=== PATIENT | male | born 1965 | race Caucasian/White ===

== ENCOUNTER 2022-08-28 01:10 | Inpatient (IN) | payer OTHER ==
[~2022-08-28] VITALS: Ht 182.9 cm; Wt 88.9 kg
[2022-08-28] MEDS ORDERED: MAG/ALUM/SIMETH 30 ML UDCUP ONE ×3 (01:18→03:13)
[2022-08-28] MEDS ORDERED: NITROGLYCERIN 50MG/D5W 250ML 1 BOT ONE (01:19)
[2022-08-28 01:34] LABS: BASOPHILS % (AUTO) 0.8 % (0.0-5.0); EOSINOPHILS % (AUTO) 0.3 % (0.0-8.0); HEMATOCRIT 42.2 % (42-54); LYMPHOCYTES % (AUTO) 7.3 % (21.0-51.0); MEAN CORPUSCULAR HEMOGLOBIN 21.8 pg (27.0-33.0); MEAN CORPUSCULAR HGB CONC 29.6 g/dL (32.0-36.0); MEAN CORPUSCULAR VOLUME 73.6 fL (79-99); MONOCYTES % (AUTO) 10.4 % (3.0-13.0); NEUTROPHILS % (AUTO) 80.6 % (40.0-77.0); PLATELET COUNT (AUTO) 383 K/uL (130-400); RED BLOOD CELL COUNT(AUTO) 5.73 MIL/uL (4.50-6.20); RED CELL DISTRIBUTION WIDTH 19.4 % (11.0-15.5); WHITE BLOOD COUNT (AUTO) 14.5 K/uL (4.8-10.8)
[2022-08-28] MEDS ORDERED: LIDOCAINE HCL 2% VISCOUS 15 ML UDCUP ONE (01:40)
[2022-08-28] MEDS ORDERED: DICYCLOMINE HCL 10 MG/5 ML ML PO ONE (01:40)
[2022-08-28 01:44] LABS: ALBUMIN 3.4 g/dL (3.5-5.0); CREATININE 1.7 mg/dL (0.5-1.5); POTASSIUM 4.3 mmol/L (3.5-5.1); TOTAL PROTEIN, SERUM 7.3 g/dL (6.0-8.3)
[2022-08-28 02:21] LABS: APPEARANCE,URINE CLOUDY (CLEAR); BILIRUBIN,URINE NEGATIVE (NEGATIVE); COLOR,URINE LIGHT-YELLOW (YELLOW); GLUCOSE, URINE (UA) NEGATIVE (NEGATIVE); KETONES,URINE NEGATIVE (NEGATIVE); LEUKOCYTE ESTERASE ,URINE NEGATIVE Leu/uL (NEGATIVE); NITRATE,URINE NEGATIVE (NEGATIVE); OCCULT BLOOD,URINE NEGATIVE (NEGATIVE); PROTEIN,URINE 50 mg/dL (NEGATIVE); UROBILINOGEN,URINE 0.2 mg/dL (0.2-1.0)
[2022-08-28 02:26] LABS: CREATINE KINASE, TOTAL 130 U/L (21-232); LIPASE 149 U/L (114-286)
[2022-08-28 02:27] LABS: AMPHET/METH SCREEN,URINE NEGATIVE (NEGATIVE); BARBITURATE SCREEN, URINE NEGATIVE (NEGATIVE); BENZODIAZEPINES SCREEN,URINE POSITIVE (NEGATIVE); CANNABINOID SCREEN,URINE NEGATIVE (NEGATIVE); COCAINE SCREEN,URINE POSITIVE (NEGATIVE); OPIATE SCREEN,URINE NEGATIVE (NEGATIVE); PHENCYCLIDINE SCREEN,URINE NEGATIVE (NEGATIVE)
[2022-08-28 02:29] LABS: RBC,URINE 0-1 /HPF (0-1); WBC,URINE 0-1 /HPF (0-1)
[2022-08-28] MEDS ORDERED: PANTOPRAZOLE 40 MG/VIAL ONE (03:13)
[2022-08-28] MEDS ORDERED: SUCRALFATE 1 GM TABLET PO STA (03:49)
[2022-08-28] MEDS ORDERED: HYDRALAZINE 20MG/ML VIAL IV STA (03:49)
[2022-08-28] MEDS ORDERED: ONDANSETRON 4MG INJ IVP PRN (05:00)
[2022-08-28] MEDS ORDERED: ACETAMINOPHEN 325 MG TAB PO PRN (05:00)
[2022-08-28] MEDS ORDERED: NITROGLYCERIN 50MG/D5W 250ML 250 BOT IV SCH (05:00)
[2022-08-28] MEDS: 0.9%NACL 1000ML 1,000 ML IV SCH ×2 (05:52→17:26)
[2022-08-28] MEDS: MORPHINE 2 MG SYG IVP PRN ×2 (05:52→10:28)
[2022-08-28 08:17] LABS: THYROID STIMULATING HORMONE 2.54 uIU/mL (0.36-3.74)
[2022-08-28] MEDS: AMLODIPINE 5 MG TAB PO SCH (09:03)
[2022-08-28] MEDS: PANTOPRAZOLE 40 MG/VIAL IVP SCH (09:03)
[2022-08-28] MEDS: ENOXAPARIN SODIUM 40 MG/0.4 ML SYRINGE SQ SCH (09:03)
[2022-08-28 14:22] VITALS: BP 142/97
[2022-08-28] MEDS: ZOSYN 3.375GM +NS 50ML IVPB SCH (16:22)
[2022-08-28 19:13] VITALS: BP 134/77
[2022-08-28] MEDS ORDERED: FAMOTIDINE 20MG VIAL IV SCH (21:00)
[2022-08-28 23:47] VITALS: BP 129/86
[2022-08-29 03:42] VITALS: BP 124/91
[2022-08-29] MEDS: ZOSYN 3.375GM +NS 50ML IVPB SCH ×3 (03:50→20:58)
[2022-08-29 04:10] LABS: BASOPHILS % (AUTO) 0.4 % (0.0-5.0); EOSINOPHILS % (AUTO) 0.3 % (0.0-8.0); HEMATOCRIT 38.3 % (42-54); LYMPHOCYTES % (AUTO) 7.4 % (21.0-51.0); MEAN CORPUSCULAR HEMOGLOBIN 22.6 pg (27.0-33.0); MEAN CORPUSCULAR VOLUME 75.2 fL (79-99); MONOCYTES % (AUTO) 8.1 % (3.0-13.0); NEUTROPHILS % (AUTO) 83.1 % (40.0-77.0); PLATELET COUNT (AUTO) 283 K/uL (130-400); RED BLOOD CELL COUNT(AUTO) 5.09 MIL/uL (4.50-6.20); RED CELL DISTRIBUTION WIDTH 18.4 % (11.0-15.5); WHITE BLOOD COUNT (AUTO) 18.9 K/uL (4.8-10.8)
[2022-08-29 04:27] LABS: ALBUMIN 2.7 g/dL (3.5-5.0); CREATININE 2.3 mg/dL (0.5-1.5); MAGNESIUM 1.8 mg/dL (1.80-2.40); TOTAL PROTEIN, SERUM 6.5 g/dL (6.0-8.3)
[2022-08-29 07:04] VITALS: BP 141/92
[2022-08-29] MEDS ORDERED: PHARMACY COMMUNICATION MISC SCH (08:00)
[2022-08-29] MEDS: ENOXAPARIN SODIUM 40 MG/0.4 ML SYRINGE SQ SCH (08:10)
[2022-08-29] MEDS: PANTOPRAZOLE 40 MG/VIAL IVP SCH (08:10)
[2022-08-29] MEDS: AMLODIPINE 5 MG TAB PO SCH (08:11)
[2022-08-29] MEDS: FAMOTIDINE 20MG VIAL IV SCH (08:11)
[2022-08-29] MEDS: 0.9%NACL 1000ML 1,000 ML IV SCH ×2 (08:28→19:52)
[2022-08-29] MEDS: SUCRALFATE 1 GM TABLET PO SCH ×3 (11:25→22:31)
[2022-08-29 11:45] VITALS: BP 143/100
[2022-08-29 15:31] VITALS: BP 120/79
[2022-08-29 20:00] VITALS: BP 136/96
[2022-08-30] VITALS: BP 140/90
[2022-08-30 04:00] VITALS: BP 145/96
[2022-08-30 04:55] LABS: BASOPHILS % (AUTO) 0.9 % (0.0-5.0); EOSINOPHILS % (AUTO) 1.9 % (0.0-8.0); HEMATOCRIT 36.6 % (42-54); LYMPHOCYTES % (AUTO) 11.5 % (21.0-51.0); MEAN CORPUSCULAR HEMOGLOBIN 22.5 pg (27.0-33.0); MEAN CORPUSCULAR HGB CONC 29.5 g/dL (32.0-36.0); MEAN CORPUSCULAR VOLUME 76.4 fL (79-99); MONOCYTES % (AUTO) 12.3 % (3.0-13.0); NEUTROPHILS % (AUTO) 72.7 % (40.0-77.0); PLATELET COUNT (AUTO) 266 K/uL (130-400); RED BLOOD CELL COUNT(AUTO) 4.79 MIL/uL (4.50-6.20); RED CELL DISTRIBUTION WIDTH 18.2 % (11.0-15.5); WHITE BLOOD COUNT (AUTO) 9.8 K/uL (4.8-10.8)
[2022-08-30] MEDS: ZOSYN 3.375GM +NS 50ML IVPB SCH ×3 (05:01→20:47)
[2022-08-30] MEDS: SUCRALFATE 1 GM TABLET PO SCH ×4 (05:01→20:47)
[2022-08-30 05:18] LABS: ALBUMIN 2.6 g/dL (3.5-5.0); CREATININE 2.3 mg/dL (0.5-1.5); CRP QUANTITATIVE 53.5 mg/L (0.00-9.0); MAGNESIUM 1.7 mg/dL (1.80-2.40); POTASSIUM 3.7 mmol/L (3.5-5.1); TOTAL PROTEIN, SERUM 6.4 g/dL (6.0-8.3)
[2022-08-30 08:00] VITALS: BP 143/97
[2022-08-30] MEDS: PANTOPRAZOLE 40 MG/VIAL IVP SCH (08:17)
[2022-08-30] MEDS: AMLODIPINE 5 MG TAB PO SCH (08:18)
[2022-08-30] MEDS: FAMOTIDINE 20MG VIAL IV SCH (08:18)
[2022-08-30] MEDS: ENOXAPARIN SODIUM 40 MG/0.4 ML SYRINGE SQ SCH (08:19)
[2022-08-30] MEDS: 0.9%NACL 1000ML 1,000 ML IV SCH ×2 (10:20→23:40)
[2022-08-30 11:55] VITALS: BP 146/99
[2022-08-30 16:00] VITALS: BP 147/92
[2022-08-30] MEDS: HYDRALAZINE 20MG/ML VIAL IV PRN (19:52)
[2022-08-30 20:00] VITALS: BP 154/107
[2022-08-31] VITALS: BP 154/92
[2022-08-31 04:00] VITALS: BP 142/95
[2022-08-31] MEDS: ZOSYN 3.375GM +NS 50ML IVPB SCH ×3 (05:11→20:50)
[2022-08-31] MEDS: SUCRALFATE 1 GM TABLET PO SCH ×4 (05:11→20:50)
[2022-08-31 08:00] VITALS: BP 152/92
[2022-08-31 08:33] LABS: HEMATOCRIT 37.1 % (42-54); MEAN CORPUSCULAR HEMOGLOBIN 22.7 pg (27.0-33.0); MEAN CORPUSCULAR HGB CONC 30.2 g/dL (32.0-36.0); MEAN CORPUSCULAR VOLUME 75.1 fL (79-99); RED BLOOD CELL COUNT(AUTO) 4.94 MIL/uL (4.50-6.20); RED CELL DISTRIBUTION WIDTH 18.3 % (11.0-15.5); WHITE BLOOD COUNT (AUTO) 9.3 K/uL (4.8-10.8)
[2022-08-31 08:46] LABS: CREATININE 1.9 mg/dL (0.5-1.5); MAGNESIUM 1.4 mg/dL (1.80-2.40); POTASSIUM 3.7 mmol/L (3.5-5.1)
[2022-08-31] MEDS: PANTOPRAZOLE 40 MG/VIAL IVP SCH (09:08)
[2022-08-31] MEDS: AMLODIPINE 5 MG TAB PO SCH ×2 (09:08→20:50)
[2022-08-31] MEDS: FAMOTIDINE 20MG VIAL IV SCH (09:08)
[2022-08-31] MEDS: ENOXAPARIN SODIUM 40 MG/0.4 ML SYRINGE SQ SCH (09:09)
[2022-08-31 11:48] VITALS: BP 148/86
[2022-08-31] MEDS: MAGNESIUM 2GM PREMIX 50ML 50 ML IV PRN ×2 (12:33→15:50)
[2022-08-31 13:51] LABS: APPEARANCE,URINE CLEAR (CLEAR); BILIRUBIN,URINE NEGATIVE (NEGATIVE); COLOR,URINE LIGHT-YELLOW (YELLOW); GLUCOSE, URINE (UA) NEGATIVE (NEGATIVE); KETONES,URINE NEGATIVE (NEGATIVE); LEUKOCYTE ESTERASE ,URINE NEGATIVE Leu/uL (NEGATIVE); NITRATE,URINE NEGATIVE (NEGATIVE); OCCULT BLOOD,URINE NEGATIVE (NEGATIVE); PH,URINE 6.5 (5.0-8.0); PROTEIN,URINE 30 mg/dL (NEGATIVE); UROBILINOGEN,URINE 0.2 mg/dL (0.2-1.0)
[2022-08-31 14:14] LABS: MUCUS,URINE RARE LPF (None Seen); WBC,URINE 0-1 /HPF (0-1)
[2022-08-31 16:00] VITALS: BP 141/95
[2022-08-31] MEDS: 0.9%NACL 1000ML 1,000 ML IV SCH (16:49)
[2022-08-31 20:00] VITALS: BP 156/97
[2022-09-01] VITALS: BP 139/97
[2022-09-01] MEDS: 0.9%NACL 1000ML 1,000 ML IV SCH (02:20)
[2022-09-01 04:00] VITALS: BP 158/96
[2022-09-01] MEDS: ZOSYN 3.375GM +NS 50ML IVPB SCH ×4 (04:35→20:04)
[2022-09-01] MEDS: SUCRALFATE 1 GM TABLET PO SCH ×3 (04:35→16:39)
[2022-09-01 06:17] LABS: HEMATOCRIT 40.4 % (42-54); MEAN CORPUSCULAR HEMOGLOBIN 22.3 pg (27.0-33.0); RED BLOOD CELL COUNT(AUTO) 5.25 MIL/uL (4.50-6.20); RED CELL DISTRIBUTION WIDTH 18.6 % (11.0-15.5); WHITE BLOOD COUNT (AUTO) 10.1 K/uL (4.8-10.8)
[2022-09-01 06:36] LABS: ALBUMIN 3.1 g/dL (3.5-5.0); CREATININE 1.8 mg/dL (0.5-1.5); MAGNESIUM 1.9 mg/dL (1.80-2.40); PHOSPHORUS 2.6 mg/dL (2.5-4.9); TOTAL PROTEIN, SERUM 7.5 g/dL (6.0-8.3)
[2022-09-01 08:00] VITALS: BP 154/94
[2022-09-01] MEDS: AMLODIPINE 5 MG TAB PO SCH ×2 (09:14→20:36)
[2022-09-01] MEDS: PANTOPRAZOLE 40 MG/VIAL IVP SCH (09:14)
[2022-09-01] MEDS: FAMOTIDINE 20MG VIAL IV SCH (09:14)
[2022-09-01] MEDS: ENOXAPARIN SODIUM 40 MG/0.4 ML SYRINGE SQ SCH (09:15)
[2022-09-01] MEDS: MAGNESIUM 2GM PREMIX 50ML 50 ML IV PRN (09:16)
[2022-09-01 12:00] VITALS: BP 145/98
[2022-09-01 16:04] VITALS: BP 160/104
[2022-09-01] MEDS: HYDRALAZINE 20MG/ML VIAL IV PRN (16:05)
[2022-09-01] MEDS ORDERED: HYDRALAZINE HCL 10 MG TABLET PO SCH (18:45)
[2022-09-01 20:00] VITALS: BP 159/100
[2022-09-01] MEDS ORDERED: NITROGLYCERIN 1GM OINT 1 INCH/1GM TD ONE (22:10)
[2022-09-02 00:29] VITALS: BP 137/93
[2022-09-02] MEDS: SUCRALFATE 1 GM TABLET PO SCH ×3 (00:32→11:07)
[2022-09-02 04:00] VITALS: BP 128/79
[2022-09-02] MEDS: ZOSYN 3.375GM +NS 50ML IVPB SCH ×2 (04:00→12:00)
[2022-09-02 06:18] LABS: HEMATOCRIT 38.4 % (42-54); MEAN CORPUSCULAR HEMOGLOBIN 22.7 pg (27.0-33.0); MEAN CORPUSCULAR HGB CONC 29.7 g/dL (32.0-36.0); MEAN CORPUSCULAR VOLUME 76.3 fL (79-99); PLATELET COUNT (AUTO) 286 K/uL (130-400); RED BLOOD CELL COUNT(AUTO) 5.03 MIL/uL (4.50-6.20); RED CELL DISTRIBUTION WIDTH 18.6 % (11.0-15.5); WHITE BLOOD COUNT (AUTO) 13.4 K/uL (4.8-10.8)
[2022-09-02 06:29] LABS: CREATININE 1.6 mg/dL (0.5-1.5); POTASSIUM 4.3 mmol/L (3.5-5.1)
[2022-09-02 08:09] LABS: BAND NEUTROPHILS % (MANUAL) 1 % (0-2); EOSINOPHILS % (MANUAL) 1 % (1-6); LYMPHOCYTES % (MANUAL) 15 % (22-44); MAN.DIFF COMMENT-IMPRESSION MANUAL DIFFERENTIAL; MONOCYTES % (MANUAL) 9 % (2-9); SEGMENTED NEUTROPHILS % 74 % (40-70)
[2022-09-02 08:11] LABS: PLATELET MORPHOLOGY COMMENT ADEQUATE
[2022-09-02 08:17] VITALS: BP 145/99
[2022-09-02] MEDS ORDERED: AMLO5TAB4 PO (08:19)
[2022-09-02] MEDS ORDERED: PANT40I PO (08:19)
[2022-09-02] MEDS ORDERED: SUCR1TAB PO (08:19)
[2022-09-02] MEDS: FAMOTIDINE 20MG VIAL IV SCH (09:00)
[2022-09-02] MEDS: ENOXAPARIN SODIUM 40 MG/0.4 ML SYRINGE SQ SCH (09:00)
[2022-09-02] MEDS: AMLODIPINE 5 MG TAB PO SCH (09:00)
[2022-09-02] MEDS: PANTOPRAZOLE 40 MG/VIAL IVP SCH (09:00)
[2022-09-02 11:26] VITALS: BP 133/91
== END 2022-09-02 17:56 | disposition home or self-care (01) | DRG 391 ==
LOC: EDH 01:10 → EDHIP 01:11 → 2DH 14:07 → 3BH 08-29 16:00
PROVIDERS: ADMIT Hospitalist; ATTEND Hospitalist
DX: K57.32 Diverticulitis of large intestine without perforation or abscess without bleeding (principal); N17.0 Acute kidney failure with tubular necrosis; I16.1 Hypertensive emergency; E87.1 Hypo-osmolality and hyponatremia; F14.20 Cocaine dependence, uncomplicated; E86.0 Dehydration; E83.52 Hypercalcemia; D72.829 Elevated white blood cell count, unspecified; E66.09 Other obesity due to excess calories; I10 Essential (primary) hypertension; K21.9 Gastro-esophageal reflux disease without esophagitis; Z68.26 Body mass index [BMI] 26.0-26.9, adult
CPT/HCPCS: 36415; 71045; 74176; 76770; 80048; 80053; 80061; 80305; 81001; 82306; 82550; 83690; 83735; 83970; 84100; 84443; 84484; 85025; 85027; 86140; 86334; 86677; 87040; 93005; 93306; C9113; G0378; J0360; J1650; J2405; J2543; J3475; J3490; J7030

== ENCOUNTER 2022-09-29 12:19 | Emergency (ER) | payer OTHER ==
[~2022-09-29] VITALS: Ht 177.8 cm; Wt 95.3 kg
[~2022-09-29 12:19] MED LIST: AMLO5TAB4 PO; PANT40I PO; SUCR1TAB PO
[2022-09-29 13:13] LABS: BASOPHILS % (AUTO) 0.6 % (0.0-5.0); EOSINOPHILS % (AUTO) 0.1 % (0.0-8.0); HEMATOCRIT 44.4 % (42-54); MEAN CORPUSCULAR HEMOGLOBIN 22.5 pg (27.0-33.0); MEAN CORPUSCULAR HGB CONC 29.7 g/dL (32.0-36.0); MEAN CORPUSCULAR VOLUME 75.6 fL (79-99); MONOCYTES % (AUTO) 9.8 % (3.0-13.0); PLATELET COUNT (AUTO) 265 K/uL (130-400); RED BLOOD CELL COUNT(AUTO) 5.87 MIL/uL (4.50-6.20); RED CELL DISTRIBUTION WIDTH 19.4 % (11.0-15.5); WHITE BLOOD COUNT (AUTO) 15.3 K/uL (4.8-10.8)
[2022-09-29 13:20] LABS: CREATININE 1.5 mg/dL (0.5-1.5); POTASSIUM 4.2 mmol/L (3.5-5.1)
[2022-09-29 13:24] LABS: ALBUMIN 2.6 g/dL (3.5-5.0); TOTAL PROTEIN, SERUM 8.9 g/dL (6.0-8.3)
[2022-09-29] MEDS ORDERED: MAG/ALUM/SIMETH 30 ML UDCUP PO PRN (14:00)
[2022-09-29] MEDS ORDERED: LIDOCAINE HCL 2% VISCOUS 15 ML UDCUP PO ONE (14:00)
[2022-09-29 14:20] LABS: APPEARANCE,URINE CLEAR (CLEAR); BILIRUBIN,URINE NEGATIVE (NEGATIVE); COLOR,URINE LIGHT-YELLOW (YELLOW); GLUCOSE, URINE (UA) NEGATIVE (NEGATIVE); KETONES,URINE 5 mg/dL (NEGATIVE); LEUKOCYTE ESTERASE ,URINE NEGATIVE Leu/uL (NEGATIVE); NITRATE,URINE NEGATIVE (NEGATIVE); PROTEIN,URINE 200 mg/dL (NEGATIVE); UROBILINOGEN,URINE 0.2 mg/dL (0.2-1.0)
[2022-09-29 14:21] LABS: MUCUS,URINE RARE LPF (None Seen); SQUAMOUS EPITHELIAL CELL,UR RARE /HPF (0-2)
[2022-09-29 14:31] LABS: AMPHET/METH SCREEN,URINE NEGATIVE (NEGATIVE); BARBITURATE SCREEN, URINE NEGATIVE (NEGATIVE); BENZODIAZEPINES SCREEN,URINE NEGATIVE (NEGATIVE); CANNABINOID SCREEN,URINE NEGATIVE (NEGATIVE); COCAINE SCREEN,URINE NEGATIVE (NEGATIVE); OPIATE SCREEN,URINE NEGATIVE (NEGATIVE); PHENCYCLIDINE SCREEN,URINE NEGATIVE (NEGATIVE)
[2022-09-29] MEDS ORDERED: MORPHINE 4 MG SYG IVP ONE (15:30)
[2022-09-29] MEDS ORDERED: ONDANSETRON 4MG INJ IVP ONE (15:30)
[2022-09-29] MEDS ORDERED: HYDRALAZINE 20MG/ML VIAL IV ONE (17:00)
[2022-09-29] MEDS ORDERED: AMLO5TAB4 PO (17:50)
[2022-09-29] MEDS ORDERED: FAMO-136 PO (17:50)
[2022-09-29] MEDS ORDERED: FAMOTIDINE 20MG VIAL IV ONE (18:00)
[2022-09-29] MEDS ORDERED: FAMOTIDINE 20MG TAB PO ONE (18:00)
[2022-09-29 18:11] VITALS: BP 147/99
== END 2022-09-29 18:09 | disposition home or self-care (01) ==
LOC: EDH 12:19
DX: R10.31 Right lower quadrant pain (principal); K57.30 Diverticulosis of large intestine without perforation or abscess without bleeding; I10 Essential (primary) hypertension; Z79.899 Other long term (current) drug therapy; Z98.890 Other specified postprocedural states
CPT/HCPCS: 99285; 74176; 96374; 96375; 84484; 80053; 80305; 83690; 85025; 36415; 93005; 81001; J3490; J0360; J2405; J2270

== ENCOUNTER 2023-03-11 09:23 | Emergency (ER) | payer OTHER ==
[~2023-03-11] VITALS: Ht 177.8 cm; Wt 77.1 kg
[~2023-03-11 09:23] MED LIST changes: +FAMO-136 PO
[2023-03-11 10:52] VITALS: BP 148/98; PULSE 66; RESP 16; O2SAT 100
[2023-03-11] MEDS ORDERED: PENICILLIN G BENZATHINE LA 1.2 MILUNITS/2 ML SYG IM ONE (11:00)
[2023-03-11 11:04] LABS: BASOPHILS # (AUTO) 0.03 K/uL (0.00-0.20); BASOPHILS % (AUTO) 0.8 % (0.0-5.0); EOSINOPHILS # (AUTO) 0.01 K/uL (0.00-0.70); EOSINOPHILS % (AUTO) 0.3 % (0.0-8.0); HEMATOCRIT 31.6 % (42-54); LYMPHOCYTES # (AUTO) 1.3 K/uL (1.0-4.8); LYMPHOCYTES % (AUTO) 32.8 % (21.0-51.0); MEAN CORPUSCULAR HGB CONC 30.7 g/dL (32.0-36.0); MONOCYTES # (AUTO) 0.5 K/uL (0.1-1.0); MONOCYTES % (AUTO) 12.1 % (3.0-13.0); NEUTROPHILS # (AUTO) 2.1 K/uL (1.8-7.7); PLATELET COUNT (AUTO) 284 K/uL (130-400); RED BLOOD CELL COUNT(AUTO) 4.05 MIL/uL (4.50-6.20); RED CELL DISTRIBUTION WIDTH 16.3 % (11.0-15.5); WHITE BLOOD COUNT (AUTO) 3.9 K/uL (4.8-10.8)
[2023-03-11 11:14] LABS: CREATININE 1.2 mg/dL (0.5-1.5); POTASSIUM 3.1 mmol/L (3.5-5.1)
[2023-03-11] MEDS ORDERED: CEFTRIAXONE 2GM VIAL IVPB ONE (13:00)
== END 2023-03-11 13:13 | disposition home or self-care (01) ==
LOC: EDH 09:23
DX: L03.311 Cellulitis of abdominal wall (principal); E87.6 Hypokalemia; I10 Essential (primary) hypertension; Z79.899 Other long term (current) drug therapy; Z98.890 Other specified postprocedural states
CPT/HCPCS: 99283; 96374; 80048; 85025; 87070; 87076; 36415; J0696

== ENCOUNTER 2023-03-26 10:09 | Inpatient (IN) | payer OTHER ==
[~2023-03-26] VITALS: Ht 177.8 cm; Wt 75.8 kg
[2023-03-26 10:57] LABS: BASOPHILS # (AUTO) 0.09 K/uL (0.00-0.20); BASOPHILS % (AUTO) 0.6 % (0.0-5.0); HEMATOCRIT 26.4 % (42-54); IMMATURE GRANULOCYTE ABSOLUTE 1.13 K/uL (0-1); LYMPHOCYTES # (AUTO) 1.7 K/uL (1.0-4.8); LYMPHOCYTES % (AUTO) 11.5 % (21.0-51.0); MEAN CORPUSCULAR HEMOGLOBIN 22.9 pg (27.0-33.0); MEAN CORPUSCULAR HGB CONC 30.7 g/dL (32.0-36.0); MEAN CORPUSCULAR VOLUME 74.8 fL (79-99); MONOCYTES # (AUTO) 1.4 K/uL (0.1-1.0); MONOCYTES % (AUTO) 9.4 % (3.0-13.0); NEUTROPHILS # (AUTO) 10.7 K/uL (1.8-7.7); NUCLEATED RED BLOOD CELLS 0.5 % (0.0-0.19); PLATELET COUNT (AUTO) 528 K/uL (130-400); RED BLOOD CELL COUNT(AUTO) 3.53 MIL/uL (4.50-6.20); RED CELL DISTRIBUTION WIDTH 16.8 % (11.0-15.5); WHITE BLOOD COUNT (AUTO) 15.1 K/uL (4.8-10.8)
[2023-03-26] MEDS ORDERED: KETOROLAC 15MG/ML VIAL (15MG/ML) IV ONE (11:00)
[2023-03-26] MEDS ORDERED: ONDANSETRON 4MG INJ IVP ONE (11:00)
[2023-03-26] MEDS ORDERED: 0.9%NACL 1000ML 1,000 ML IV ONE (11:00)
[2023-03-26 11:29] LABS: CREATININE 1.6 mg/dL (0.5-1.5); POTASSIUM 3.6 mmol/L (3.5-5.1)
[2023-03-26] MEDS ORDERED: AMPICILLIN 1GM+NS 50ML IV ONE (11:30)
[2023-03-26 11:34] LABS: ALBUMIN 2.5 g/dL (3.5-5.0); BILIRUBIN,TOTAL 0.2 mg/dL (0.2-1.0); TOTAL PROTEIN, SERUM 6.5 g/dL (6.0-8.3)
[2023-03-26] MEDS ORDERED: METRONIDAZOLE 500MG/100ML BAG 100 ML ONE (11:45)
[2023-03-26] MEDS ORDERED: AMPICILLIN IV ONE (13:00)
[2023-03-26] MEDS ORDERED: [UNRECOGNIZED DRUG - OTHER] IV ONE (13:00)
[2023-03-26] MEDS ORDERED: METRONIDAZOLE 500MG/100ML BAG 100 ML IVPB SCH ×2 (14:00→23:00)
[2023-03-26] MEDS ORDERED: PANTOPRAZOLE 40 MG/VIAL IVP ONE (15:30)
[2023-03-26] MEDS ORDERED: VANCOMYCIN 2GM/500 ML BAG 500 ML IV ONE (16:00)
[2023-03-26] MEDS ORDERED: METRONIDAZOLE 500MG/100ML BAG 100 ML IVPB ONE (16:00)
[2023-03-26] MEDS ORDERED: VANCOMYCIN PROTOCOL PER PHARMACY IV SCH (16:00)
[2023-03-26] MEDS ORDERED: 0.9%NACL 1000ML 1,413 ML IV ONE (16:00)
[2023-03-26] MEDS ORDERED: THIAMINE HCL 100 MG/ML 2ML VIAL IVP ONE (16:00)
[2023-03-26] MEDS ORDERED: ACETAMINOPHEN 500 MG TABLET PO PRN (16:00)
[2023-03-26] MEDS ORDERED: FOLIC ACID 5 MG/ML VIAL IV ONE ×2 (16:00→19:00)
[2023-03-26 16:30] LABS: HEMATOCRIT 25.9 % (42-54)
[2023-03-26 17:05] LABS: INR 1.63 (0.85-1.15); PROTHROMBIN TIME 18.3 SEC (9.6-11.6)
[2023-03-26 17:06] LABS: PARTIAL THROMBOPLASTIN TIME 24.7 SEC (26.3-35.5)
[2023-03-26 17:18] LABS: % IRON SATURATION 9.9 % (30-44)
[2023-03-26] MEDS: PANTOPRAZOLE 80 MG in 0.9%NACL 100ML IV SCH (17:29)
[2023-03-26] MEDS: CEFEPIME HCL 2 GM VIAL IVPB SCH (17:29)
[2023-03-26] MEDS: HYDROMORPHONE 0.5 MG SYG (0.5MG/0.5ML) IVP PRN (18:15)
[2023-03-26] MEDS: M.V.I. IV [ADULT] 10 ML, FOLIC ACID 1 MG, THIAMINE HCL 100 MG in 0.9%NACL 1000ML 1,000 ML IV SCH (18:18)
[2023-03-26 19:57] LABS: APPEARANCE,URINE CLEAR (CLEAR); BILIRUBIN,URINE NEGATIVE (NEGATIVE); COLOR,URINE LIGHT-YELLOW (YELLOW); GLUCOSE, URINE (UA) NEGATIVE (NEGATIVE); KETONES,URINE NEGATIVE (NEGATIVE); LEUKOCYTE ESTERASE ,URINE NEGATIVE Leu/uL (NEGATIVE); NITRATE,URINE NEGATIVE (NEGATIVE); OCCULT BLOOD,URINE NEGATIVE (NEGATIVE); PH,URINE 7.5 (5.0-8.0); PROTEIN,URINE NEGATIVE (NEGATIVE); UROBILINOGEN,URINE 0.2 mg/dL (0.2-1.0)
[2023-03-26 20:00] LABS: ADD UA MICROSCOPIC YES
[2023-03-26 20:03] LABS: AMPHET/METH SCREEN,URINE NEGATIVE (NEGATIVE); BARBITURATE SCREEN, URINE NEGATIVE (NEGATIVE); BENZODIAZEPINES SCREEN,URINE POSITIVE (NEGATIVE); CANNABINOID SCREEN,URINE NEGATIVE (NEGATIVE); COCAINE SCREEN,URINE POSITIVE (NEGATIVE); OPIATE SCREEN,URINE NEGATIVE (NEGATIVE); PHENCYCLIDINE SCREEN,URINE NEGATIVE (NEGATIVE)
[2023-03-26 20:07] LABS: WBC,URINE 0-1 /HPF (0-1)
[2023-03-26 22:37] LABS: HEMATOCRIT 25.3 % (42-54)
[2023-03-27] VITALS (28 sets, daily range): BP systolic 110–141; BP diastolic 62–89; PULSE 63–95; RESP 11–18; O2SAT 96–97
[2023-03-27] MEDS ORDERED: DiphenhydrAMINE HCL 50 MG/ML VIAL IV ONE (00:15)
[2023-03-27] MEDS ORDERED: PANTOPRAZOLE 40 MG/VIAL ONE (03:17)
[2023-03-27] MEDS: PANTOPRAZOLE 80 MG in 0.9%NACL 100ML IV SCH ×2 (03:25→16:26)
[2023-03-27] MEDS: HYDROMORPHONE 0.5 MG SYG (0.5MG/0.5ML) IVP PRN ×4 (03:59→22:27)
[2023-03-27 04:26] LABS: ALBUMIN 1.8 g/dL (3.5-5.0); BILIRUBIN,TOTAL 0.3 mg/dL (0.2-1.0); CREATININE 1.4 mg/dL (0.5-1.5); MAGNESIUM 1.6 mg/dL (1.80-2.40); POTASSIUM 3.7 mmol/L (3.5-5.1); TOTAL PROTEIN, SERUM 4.8 g/dL (6.0-8.3)
[2023-03-27 04:49] LABS: HEMATOCRIT 20.1 % (42-54)
[2023-03-27] MEDS: MAGNESIUM 2GM PREMIX 50ML 50 ML IV PRN (05:00)
[2023-03-27] MEDS ORDERED: KCL 20 MEQ ERTAB PO ONE (08:30)
[2023-03-27] MEDS ORDERED: MAGNESIUM 2GM PREMIX 50ML 50 ML IV SCH (08:30)
[2023-03-27 09:43] LABS: HEMATOCRIT 26.5 % (42-54); MEAN CORPUSCULAR HEMOGLOBIN 24.1 pg (27.0-33.0); MEAN CORPUSCULAR HGB CONC 30.6 g/dL (32.0-36.0); MEAN CORPUSCULAR VOLUME 78.9 fL (79-99); NUCLEATED RED BLOOD CELLS 0.4 % (0.0-0.19); RED BLOOD CELL COUNT(AUTO) 3.36 MIL/uL (4.50-6.20); RED CELL DISTRIBUTION WIDTH 18.2 % (11.0-15.5); WHITE BLOOD COUNT (AUTO) 11.1 K/uL (4.8-10.8)
[2023-03-27] MEDS: METRONIDAZOLE 500MG/100ML BAG 100 ML IVPB SCH ×3 (10:17→22:27)
[2023-03-27] MEDS ORDERED: COMPOUND IV REFRIGERATED 1 EACH IVSOLN MISC PRN (11:30)
[2023-03-27] MEDS ORDERED: PROPOFOL 10 MG/ML 20ML VIAL IV ONE ×3 (13:07→13:08)
[2023-03-27] MEDS ORDERED: METOCLOPRAMIDE 10 MG/2 ML VIAL ONE (14:04)
[2023-03-27 15:29] LABS: PROTHROMBIN TIME 11.6 SEC (9.6-11.6)
[2023-03-27 15:31] LABS: PARTIAL THROMBOPLASTIN TIME 25.1 SEC (26.3-35.5)
[2023-03-27] MEDS: CEFEPIME HCL 2 GM VIAL IVPB SCH (15:31)
[2023-03-27] MEDS: VANCOMYCIN 1.5 GM/250 ML BAG 250 ML IV SCH (16:26)
[2023-03-27] MEDS: M.V.I. IV [ADULT] 10 ML, FOLIC ACID 1 MG, THIAMINE HCL 100 MG in 0.9%NACL 1000ML 1,000 ML IV SCH ×2 (18:00→23:47)
[2023-03-28] VITALS (22 sets, daily range): BP systolic 110–159; BP diastolic 78–99; PULSE 62–92; RESP 13–18; O2SAT 97–98
[2023-03-28] MEDS: PANTOPRAZOLE 80 MG in 0.9%NACL 100ML IV SCH (03:44)
[2023-03-28] MEDS: HYDROMORPHONE 0.5 MG SYG (0.5MG/0.5ML) IVP PRN ×4 (04:22→22:41)
[2023-03-28 05:56] LABS: HEMATOCRIT 22.7 % (42-54); MEAN CORPUSCULAR HEMOGLOBIN 24.2 pg (27.0-33.0); MEAN CORPUSCULAR VOLUME 80.8 fL (79-99); NUCLEATED RED BLOOD CELLS 0.3 % (0.0-0.19); RED BLOOD CELL COUNT(AUTO) 2.81 MIL/uL (4.50-6.20); RED CELL DISTRIBUTION WIDTH 17.6 % (11.0-15.5); WHITE BLOOD COUNT (AUTO) 8.6 K/uL (4.8-10.8)
[2023-03-28 06:28] LABS: ALANINE AMINOTRANSFERASE < 6 U/L (12-78); ALBUMIN 1.9 g/dL (3.5-5.0); ASPARTATE AMINOTRANSFERASE 11 U/L (10-37); BILIRUBIN,TOTAL 0.3 mg/dL (0.2-1.0); CARBON DIOXIDE 24 mmol/L (21-32); CHLORIDE 110 mmol/L (101-111); CREATININE 1.2 mg/dL (0.5-1.5); GLOMERULAR FILTR. RATE CALC 71 mL/min (>90); GLUCOSE,RANDOM 86 mg/dL (70-105); SODIUM SERUM 140 mmol/L (136-145); TOTAL PROTEIN, SERUM 5.2 g/dL (6.0-8.3); UREA NITROGEN, BLOOD 22 mg/dL (7-18)
[2023-03-28] MEDS ORDERED: LIDOCAINE HCL 400MG/20ML VIAL ONE (06:52)
[2023-03-28] MEDS ORDERED: PROPOFOL 10 MG/ML 20ML VIAL IV ONE (06:52)
[2023-03-28] MEDS: METRONIDAZOLE 500MG/100ML BAG 100 ML IVPB SCH ×3 (07:35→22:31)
[2023-03-28] MEDS ORDERED: MAGNESIUM 2GM PREMIX 50ML 50 ML IV SCH (08:00)
[2023-03-28] MEDS: PANTOPRAZOLE 40 MG TAB DR PO SCH ×2 (09:32→20:42)
[2023-03-28] MEDS: SUCRALFATE 1 GM TABLET PO SCH ×3 (09:35→20:42)
[2023-03-28] MEDS: CEFEPIME HCL 2 GM VIAL IVPB SCH (16:08)
[2023-03-28] MEDS: VANCOMYCIN 1.5 GM/250 ML BAG 250 ML IV SCH (16:09)
[2023-03-28] MEDS: MELATONIN 5 MG TABLET PO SCH (20:43)
[2023-03-29] VITALS (7 sets, daily range): BP systolic 140–170; BP diastolic 87–117; PULSE 73–84; RESP 18–20; O2SAT 97–98
[2023-03-29] MEDS: SUCRALFATE 1 GM TABLET PO SCH ×3 (02:48→16:01)
[2023-03-29 03:57] LABS: HEMATOCRIT 23.3 % (42-54); MEAN CORPUSCULAR HEMOGLOBIN 25.7 pg (27.0-33.0); MEAN CORPUSCULAR HGB CONC 31.8 g/dL (32.0-36.0); MEAN CORPUSCULAR VOLUME 80.9 fL (79-99); RED BLOOD CELL COUNT(AUTO) 2.88 MIL/uL (4.50-6.20); RED CELL DISTRIBUTION WIDTH 17.7 % (11.0-15.5); WHITE BLOOD COUNT (AUTO) 7.8 K/uL (4.8-10.8)
[2023-03-29 04:29] LABS: ALBUMIN 1.8 g/dL (3.5-5.0); ASPARTATE AMINOTRANSFERASE 10 U/L (10-37); BILIRUBIN,TOTAL 0.3 mg/dL (0.2-1.0); CARBON DIOXIDE 23 mmol/L (21-32); CHLORIDE 110 mmol/L (101-111); CREATININE 1.2 mg/dL (0.5-1.5); GLOMERULAR FILTR. RATE CALC 71 mL/min (>90); GLUCOSE,RANDOM 99 mg/dL (70-105); SODIUM SERUM 140 mmol/L (136-145); TOTAL PROTEIN, SERUM 4.8 g/dL (6.0-8.3); UREA NITROGEN, BLOOD 15 mg/dL (7-18)
[2023-03-29] MEDS: HYDROMORPHONE 0.5 MG SYG (0.5MG/0.5ML) IVP PRN ×4 (05:09→21:58)
[2023-03-29] MEDS: MAGNESIUM 2GM PREMIX 50ML 50 ML IV PRN (05:09)
[2023-03-29] MEDS: METRONIDAZOLE 500MG/100ML BAG 100 ML IVPB SCH ×3 (05:10→21:47)
[2023-03-29 06:16] LABS: ALANINE AMINOTRANSFERASE < 6 U/L (12-78)
[2023-03-29] MEDS: PANTOPRAZOLE 40 MG TAB DR PO SCH (08:19)
[2023-03-29] MEDS ORDERED: HYDRALAZINE 20MG/ML VIAL IV PRN (14:00)
[2023-03-29] MEDS ORDERED: MAGNESIUM 2GM PREMIX 50ML 50 ML IV SCH (14:00)
[2023-03-29] MEDS: CEFEPIME HCL 2 GM VIAL IVPB SCH (14:08)
[2023-03-29] MEDS: VANCOMYCIN 1.5 GM/250 ML BAG 250 ML IV SCH (14:09)
[2023-03-29] MEDS: MELATONIN 5 MG TABLET PO SCH (21:47)
[2023-03-30] VITALS (8 sets, daily range): BP systolic 148–169; BP diastolic 93–110; PULSE 80–93; RESP 19–20; O2SAT 98
[2023-03-30] MEDS: HYDROMORPHONE 0.5 MG SYG (0.5MG/0.5ML) IVP PRN ×4 (04:06→22:05)
[2023-03-30] MEDS: METRONIDAZOLE 500MG/100ML BAG 100 ML IVPB SCH ×3 (05:10→21:55)
[2023-03-30] MEDS: SUCRALFATE 1 GM TABLET PO SCH ×3 (05:32→16:20)
[2023-03-30 05:44] LABS: HEMATOCRIT 26.6 % (42-54); MEAN CORPUSCULAR HEMOGLOBIN 25.6 pg (27.0-33.0); MEAN CORPUSCULAR VOLUME 80.1 fL (79-99); RED BLOOD CELL COUNT(AUTO) 3.32 MIL/uL (4.50-6.20); RED CELL DISTRIBUTION WIDTH 17.8 % (11.0-15.5); WHITE BLOOD COUNT (AUTO) 13.1 K/uL (4.8-10.8)
[2023-03-30 05:57] LABS: ALBUMIN 1.8 g/dL (3.5-5.0); BILIRUBIN,TOTAL 0.3 mg/dL (0.2-1.0); MAGNESIUM 1.4 mg/dL (1.80-2.40); POTASSIUM 3.9 mmol/L (3.5-5.1); TOTAL PROTEIN, SERUM 4.9 g/dL (6.0-8.3)
[2023-03-30] MEDS: AMLODIPINE 5 MG TAB PO SCH (07:58)
[2023-03-30] MEDS: FAMOTIDINE 20MG TAB PO SCH (07:58)
[2023-03-30] MEDS ORDERED: COLCHICINE 0.6 MG TABLET PO SCH ×2 (11:00)
[2023-03-30] MEDS ORDERED: COLCHICINE 0.6 MG TABLET PO ONE ×2 (11:30→12:30)
[2023-03-30] MEDS: CEFEPIME HCL 2 GM VIAL IVPB SCH (16:20)
[2023-03-30] MEDS: ONDANSETRON 4MG INJ IVP PRN (17:44)
[2023-03-30] MEDS: METOPROLOL TARTRATE 25 MG TAB PO SCH (21:55)
[2023-03-30] MEDS: MELATONIN 5 MG TABLET PO SCH (21:55)
[2023-03-31] VITALS (8 sets, daily range): BP systolic 135–150; BP diastolic 58–99; PULSE 65–89; RESP 16–19; O2SAT 98–99
[2023-03-31] MEDS: HYDROMORPHONE 0.5 MG SYG (0.5MG/0.5ML) IVP PRN ×4 (04:10→22:17)
[2023-03-31] MEDS: METRONIDAZOLE 500MG/100ML BAG 100 ML IVPB SCH ×3 (04:50→21:15)
[2023-03-31] MEDS: SUCRALFATE 1 GM TABLET PO SCH ×3 (07:39→16:12)
[2023-03-31 08:01] LABS: BASOPHILS # (AUTO) 0.05 K/uL (0.00-0.20); BASOPHILS % (AUTO) 0.4 % (0.0-5.0); EOSINOPHILS # (AUTO) 0.02 K/uL (0.00-0.70); EOSINOPHILS % (AUTO) 0.2 % (0.0-8.0); HEMATOCRIT 28.3 % (42-54); IMMATURE GRANULOCYTE ABSOLUTE 0.44 K/uL (0-1); LYMPHOCYTES # (AUTO) 1.5 K/uL (1.0-4.8); LYMPHOCYTES % (AUTO) 11.7 % (21.0-51.0); MEAN CORPUSCULAR HEMOGLOBIN 25.9 pg (27.0-33.0); MEAN CORPUSCULAR HGB CONC 31.8 g/dL (32.0-36.0); MEAN CORPUSCULAR VOLUME 81.6 fL (79-99); MONOCYTES # (AUTO) 2.2 K/uL (0.1-1.0); MONOCYTES % (AUTO) 16.9 % (3.0-13.0); NEUTROPHILS # (AUTO) 8.7 K/uL (1.8-7.7); NEUTROPHILS % (AUTO) 67.4 % (40.0-77.0); PLATELET COUNT (AUTO) 280 K/uL (130-400); RED BLOOD CELL COUNT(AUTO) 3.47 MIL/uL (4.50-6.20); RED CELL DISTRIBUTION WIDTH 18.9 % (11.0-15.5); WHITE BLOOD COUNT (AUTO) 12.9 K/uL (4.8-10.8)
[2023-03-31] MEDS: FAMOTIDINE 20MG TAB PO SCH (09:01)
[2023-03-31] MEDS: AMLODIPINE 5 MG TAB PO SCH (09:01)
[2023-03-31] MEDS: METOPROLOL TARTRATE 25 MG TAB PO SCH (09:01)
[2023-03-31 09:08] LABS: ALBUMIN 1.9 g/dL (3.5-5.0); BILIRUBIN,TOTAL 0.3 mg/dL (0.2-1.0); MAGNESIUM 1.3 mg/dL (1.80-2.40); TOTAL PROTEIN, SERUM 5.2 g/dL (6.0-8.3)
[2023-03-31] MEDS: MAGNESIUM 2GM PREMIX 50ML 50 ML IV PRN (10:31)
[2023-03-31] MEDS: CEFEPIME HCL 2 GM VIAL IVPB SCH (14:57)
[2023-03-31] MEDS: ONDANSETRON 4MG INJ IVP PRN (20:01)
[2023-03-31] MEDS: MELATONIN 5 MG TABLET PO SCH (21:15)
[2023-04-01 03:00] VITALS: BP 135/89; PULSE 79; RESP 16
[2023-04-01] MEDS: HYDROMORPHONE 0.5 MG SYG (0.5MG/0.5ML) IVP PRN ×3 (04:08→20:31)
[2023-04-01] MEDS: METRONIDAZOLE 500MG/100ML BAG 100 ML IVPB SCH ×3 (06:00→21:35)
[2023-04-01] MEDS: SUCRALFATE 1 GM TABLET PO SCH ×3 (06:00→16:46)
[2023-04-01 07:20] VITALS: O2SAT 99
[2023-04-01 08:00] VITALS: BP 137/101; PULSE 100; RESP 20
[2023-04-01] MEDS: AMLODIPINE 5 MG TAB PO SCH (08:13)
[2023-04-01] MEDS: FAMOTIDINE 20MG TAB PO SCH (08:13)
[2023-04-01] MEDS: ONDANSETRON 4MG INJ IVP PRN (08:14)
[2023-04-01 10:18] LABS: BASOPHILS # (AUTO) 0.03 K/uL (0.00-0.20); BASOPHILS % (AUTO) 0.2 % (0.0-5.0); EOSINOPHILS # (AUTO) 0.02 K/uL (0.00-0.70); EOSINOPHILS % (AUTO) 0.2 % (0.0-8.0); HEMATOCRIT 26.7 % (42-54); IMMATURE GRANULOCYTE ABSOLUTE 0.33 K/uL (0-1); LYMPHOCYTES # (AUTO) 1.4 K/uL (1.0-4.8); LYMPHOCYTES % (AUTO) 10.6 % (21.0-51.0); MEAN CORPUSCULAR HEMOGLOBIN 27.7 pg (27.0-33.0); MEAN CORPUSCULAR HGB CONC 32.6 g/dL (32.0-36.0); MONOCYTES % (AUTO) 15.6 % (3.0-13.0); NEUTROPHILS % (AUTO) 70.8 % (40.0-77.0); PLATELET COUNT (AUTO) 276 K/uL (130-400); RED BLOOD CELL COUNT(AUTO) 3.14 MIL/uL (4.50-6.20); RED CELL DISTRIBUTION WIDTH 21.2 % (11.0-15.5); WHITE BLOOD COUNT (AUTO) 12.8 K/uL (4.8-10.8)
[2023-04-01 10:25] LABS: CREATININE 1.1 mg/dL (0.5-1.5)
[2023-04-01] MEDS ORDERED: PANT40TA54 PO (11:39)
[2023-04-01] MEDS ORDERED: ACET-2743 PO (11:39)
[2023-04-01] MEDS ORDERED: SUCR1TAB PO (11:39)
[2023-04-01] MEDS ORDERED: CLIN-141 PO (11:39)
[2023-04-01] MEDS ORDERED: AMLO5TAB4 PO (11:39)
[2023-04-01 12:00] VITALS: BP 133/68; PULSE 96; RESP 20
[2023-04-01] MEDS: CEFEPIME HCL 2 GM VIAL IVPB SCH (14:35)
[2023-04-01 16:00] VITALS: BP 124/80; PULSE 85; RESP 18
[2023-04-01] MEDS: ACETAMINOPHEN WITH CODEINE 1 TAB TAB PO PRN ×2 (16:46→23:35)
[2023-04-01 20:00] VITALS: BP 134/94; PULSE 78; RESP 18; O2SAT 98
[2023-04-01] MEDS: MELATONIN 5 MG TABLET PO SCH (20:30)
[2023-04-01] MEDS: RIVAROXABAN 15 MG TABLET PO SCH (20:31)
[2023-04-02] VITALS (9 sets, daily range): BP systolic 127–148; BP diastolic 90–102; PULSE 66–91; RESP 16–20; O2SAT 96–99
[2023-04-02 04:02] LABS: BASOPHILS # (AUTO) 0.06 K/uL (0.00-0.20); BASOPHILS % (AUTO) 0.7 % (0.0-5.0); EOSINOPHILS # (AUTO) 0.02 K/uL (0.00-0.70); EOSINOPHILS % (AUTO) 0.2 % (0.0-8.0); HEMATOCRIT 23.8 % (42-54); IMMATURE GRANULOCYTE ABSOLUTE 0.25 K/uL (0-1); LYMPHOCYTES # (AUTO) 1.7 K/uL (1.0-4.8); LYMPHOCYTES % (AUTO) 18.9 % (21.0-51.0); MEAN CORPUSCULAR HEMOGLOBIN 31.4 pg (27.0-33.0); MEAN CORPUSCULAR HGB CONC 34.9 g/dL (32.0-36.0); MEAN CORPUSCULAR VOLUME 90.2 fL (79-99); MONOCYTES # (AUTO) 1.8 K/uL (0.1-1.0); MONOCYTES % (AUTO) 20.1 % (3.0-13.0); NEUTROPHILS % (AUTO) 57.2 % (40.0-77.0); PLATELET COUNT (AUTO) 314 K/uL (130-400); RED BLOOD CELL COUNT(AUTO) 2.64 MIL/uL (4.50-6.20); RED CELL DISTRIBUTION WIDTH 23.7 % (11.0-15.5); WHITE BLOOD COUNT (AUTO) 8.7 K/uL (4.8-10.8)
[2023-04-02 04:47] LABS: ALBUMIN 1.8 g/dL (3.5-5.0); BILIRUBIN,TOTAL 0.2 mg/dL (0.2-1.0); CREATININE 1.2 mg/dL (0.5-1.5); POTASSIUM 4.2 mmol/L (3.5-5.1); TOTAL PROTEIN, SERUM 4.9 g/dL (6.0-8.3)
[2023-04-02] MEDS: ACETAMINOPHEN WITH CODEINE 1 TAB TAB PO PRN ×6 (04:50→21:33)
[2023-04-02] MEDS: METRONIDAZOLE 500MG/100ML BAG 100 ML IVPB SCH ×3 (06:02→20:21)
[2023-04-02] MEDS: SUCRALFATE 1 GM TABLET PO SCH ×3 (07:30→17:29)
[2023-04-02] MEDS: AMLODIPINE 5 MG TAB PO SCH (09:06)
[2023-04-02] MEDS: FAMOTIDINE 20MG TAB PO SCH (09:06)
[2023-04-02] MEDS: RIVAROXABAN 15 MG TABLET PO SCH ×2 (09:06→20:21)
[2023-04-02] MEDS: ONDANSETRON 4MG INJ IVP PRN ×2 (13:09→20:21)
[2023-04-02] MEDS ORDERED: RIVA1TAB PO (14:42)
[2023-04-02] MEDS: CEFEPIME HCL 2 GM VIAL IVPB SCH (15:19)
[2023-04-02] MEDS: MELATONIN 5 MG TABLET PO SCH (20:21)
[2023-04-03] MEDS: ACETAMINOPHEN WITH CODEINE 1 TAB TAB PO PRN ×3 (03:45→13:57)
[2023-04-03 04:27] VITALS: BP 144/95; PULSE 64; RESP 18
[2023-04-03] MEDS: SUCRALFATE 1 GM TABLET PO SCH ×2 (06:02→10:47)
[2023-04-03] MEDS: METRONIDAZOLE 500MG/100ML BAG 100 ML IVPB SCH (06:02)
[2023-04-03] MEDS: ONDANSETRON 4MG INJ IVP PRN ×3 (06:08→16:57)
[2023-04-03 07:10] VITALS: O2SAT 99
[2023-04-03 07:58] VITALS: BP 136/89; PULSE 67; RESP 20
[2023-04-03] MEDS: RIVAROXABAN 15 MG TABLET PO SCH (08:27)
[2023-04-03] MEDS: AMLODIPINE 5 MG TAB PO SCH (08:27)
[2023-04-03] MEDS: FAMOTIDINE 20MG TAB PO SCH (08:28)
[2023-04-03 11:09] VITALS: BP 144/98; PULSE 67; RESP 17
== END 2023-04-03 17:25 | disposition home or self-care (01) | DRG 393 ==
LOC: EDH 10:09 → EDHIP 10:10 → 2DH 23:37 → 4CH 03-29 06:30
PROVIDERS: ADMIT Internal Medicine; ATTEND Internal Medicine
PROC: 30233N1 Transfusion of Nonautologous Red Blood Cells into Peripheral Vein, Percutaneous Approach (ICD-10-PCS; principal; 2023-03-27)
PROC: 0DJ08ZZ Inspection of Upper Intestinal Tract, Via Natural or Artificial Opening Endoscopic (ICD-10-PCS; 2023-03-27)
PROC: 02HV33Z Insertion of Infusion Device into Superior Vena Cava, Percutaneous Approach (ICD-10-PCS; 2023-03-27)
PROC: B548ZZA Ultrasonography of Superior Vena Cava, Guidance (ICD-10-PCS; 2023-03-27)
PROC: 0W3P8ZZ Control Bleeding in Gastrointestinal Tract, Via Natural or Artificial Opening Endoscopic (ICD-10-PCS; 2023-03-28)
DX: K94.22 Gastrostomy infection (principal); A41.9 Sepsis, unspecified organism; E87.20 Acidosis, unspecified; N17.9 Acute kidney failure, unspecified; L03.311 Cellulitis of abdominal wall; I82.612 Acute embolism and thrombosis of superficial veins of left upper extremity; D50.9 Iron deficiency anemia, unspecified; D75.839 Thrombocytosis, unspecified; K22.2 Esophageal obstruction; F19.10 Other psychoactive substance abuse, uncomplicated; I10 Essential (primary) hypertension; I80.8 Phlebitis and thrombophlebitis of other sites; Z79.01 Long term (current) use of anticoagulants; Z87.19 Personal history of other diseases of the digestive system; Y83.8 Other surgical procedures as the cause of abnormal reaction of the patient, or of later complication, without mention of misadventure at the time of the procedure; Y73.2 Prosthetic and other implants, materials and accessory gastroenterology and urology devices associated with adverse incidents
CPT/HCPCS: 36415; 36430; 43235; 71045; 74176; 80048; 80053; 80305; 81001; 82728; 82948; 83540; 83550; 83605; 83735; 84145; 84484; 85014; 85018; 85025; 85027; 85378; 85610; 85651; 85730; 86140; 86850; 86900; 86901; 86923; 87040; 93005; 93971; 99291; C1894; C9113; G0378; J0290; J0360; J0692; J1170; J1200; J1885; J2405; J2704; J2765; J3411; J3475; J3490; J7030; P9016; A4215; A4216; A4222; A4223; A4620; A4649; A7002; J3370

== ENCOUNTER 2023-07-02 22:43 | Emergency (ER) | payer OTHER ==
[~2023-07-02 22:43] MED LIST changes: +ACET-2743 PO; +CYCL5TAB PO; -FAMO-136 PO; -PANT40I PO; +PANT40TA54 PO
[2023-07-02 23:12] LABS: BASOPHILS # (AUTO) 0.12 K/uL (0.00-0.20); BASOPHILS % (AUTO) 1.1 % (0.0-5.0); EOSINOPHILS # (AUTO) 0.01 K/uL (0.00-0.70); EOSINOPHILS % (AUTO) 0.1 % (0.0-8.0); HEMATOCRIT 34.7 % (42-54); IMMATURE GRANULOCYTE ABSOLUTE 0.07 K/uL (0-1); LYMPHOCYTES # (AUTO) 1.7 K/uL (1.0-4.8); LYMPHOCYTES % (AUTO) 15.4 % (21.0-51.0); MEAN CORPUSCULAR HEMOGLOBIN 23.8 pg (27.0-33.0); MEAN CORPUSCULAR HGB CONC 30.5 g/dL (32.0-36.0); MONOCYTES % (AUTO) 9.3 % (3.0-13.0); NEUTROPHILS # (AUTO) 8.1 K/uL (1.8-7.7); NEUTROPHILS % (AUTO) 73.5 % (40.0-77.0); PLATELET COUNT (AUTO) 420 K/uL (130-400); RED BLOOD CELL COUNT(AUTO) 4.45 MIL/uL (4.50-6.20)
[2023-07-02 23:49] LABS: INR 0.96 (0.85-1.15); PROTHROMBIN TIME 11.2 SEC (9.6-11.6)
[2023-07-02 23:57] LABS: ALANINE AMINOTRANSFERASE 10 U/L (12-78); ALBUMIN 2.4 g/dL (3.5-5.0); ALCOHOL, BLOOD < 3 mg/dL (0-10); ASPARTATE AMINOTRANSFERASE 11 U/L (10-37); BILIRUBIN,TOTAL 0.4 mg/dL (0.2-1.0); CARBON DIOXIDE 30 mmol/L (21-32); CHLORIDE 101 mmol/L (101-111); CREATINE KINASE, TOTAL 45 U/L (21-232); CREATININE 1.5 mg/dL (0.5-1.5); GLOMERULAR FILTR. RATE CALC 54 mL/min (>90); GLUCOSE,RANDOM 104 mg/dL (70-105); POTASSIUM 3.5 mmol/L (3.5-5.1); SODIUM SERUM 139 mmol/L (136-145); TOTAL PROTEIN, SERUM 6.6 g/dL (6.0-8.3); UREA NITROGEN, BLOOD 15 mg/dL (7-18)
[2023-07-03] MEDS ORDERED: IOHEXOL 350 MG/ML 100ML INFUS..BTL IV ONE (00:29)
[2023-07-03] MEDS: ONDANSETRON 4MG INJ IVP ONE (01:14)
[2023-07-03] MEDS: MORPHINE 2 MG SYG IVP ONE ×2 (01:16→03:49)
[2023-07-03 03:50] VITALS: BP 143/68; PULSE 80; RESP 18; O2SAT 98
== END 2023-07-03 04:02 | disposition short-term general hospital (02) ==
LOC: EDH 22:43
DX: S52.122A Displaced fracture of head of left radius, initial encounter for closed fracture (principal); S62.615A Displaced fracture of proximal phalanx of left ring finger, initial encounter for closed fracture; S01.81XA Laceration without foreign body of other part of head, initial encounter; I10 Essential (primary) hypertension; Z79.899 Other long term (current) drug therapy; Z98.890 Other specified postprocedural states; W18.39XA Other fall on same level, initial encounter; Y93.89 Activity, other specified; Y92.59 Other trade areas as the place of occurrence of the external cause; Y99.8 Other external cause status
CPT/HCPCS: 99285; 70450; 82550; 84484; 80053; 85025; 85610; 85730; 36415; 73080; 73060; 72125; 71270; 70486; 74178; 93005 ×2; 96374; 29105; 96375; 96376; 73130; J2270 ×2; J2405; Q9967

== ENCOUNTER 2023-08-29 15:43 | Emergency (ER) | payer OTHER ==
[~2023-08-29] VITALS: Ht 180.3 cm; Wt 81.6 kg
[2023-08-29] MEDS ORDERED: IBUPROFEN 800 MG TAB PO ONE (17:00)
[2023-08-29] MEDS: ACETAMINOPHEN 500 MG TABLET PO ONE (17:03)
[2023-08-29 18:37] VITALS: BP 113/73; PULSE 75; RESP 14; O2SAT 99
[2023-08-29] MEDS: LIDOCAINE 1%-EPI 1:100,000 20 ML VIAL IJ SCH (18:37)
== END 2023-08-29 18:51 | disposition home or self-care (01) ==
LOC: EDH 15:43
DX: S01.511A Laceration without foreign body of lip, initial encounter (principal); J34.89 Other specified disorders of nose and nasal sinuses; I10 Essential (primary) hypertension; Z79.899 Other long term (current) drug therapy; Z98.890 Other specified postprocedural states; W18.39XA Other fall on same level, initial encounter; Y93.89 Activity, other specified; Y92.89 Other specified places as the place of occurrence of the external cause; Y99.8 Other external cause status
CPT/HCPCS: 99284; 70450; 72125; 70486; 12011; J3490

== ENCOUNTER 2023-08-31 15:20 | Emergency (ER) | payer OTHER ==
[~2023-08-31] VITALS: Ht 180.3 cm; Wt 83.9 kg
[2023-08-31 16:10] LABS: BASOPHILS # (AUTO) 0.08 K/uL (0.00-0.20); BASOPHILS % (AUTO) 0.5 % (0.0-5.0); EOSINOPHILS # (AUTO) 0.01 K/uL (0.00-0.70); EOSINOPHILS % (AUTO) 0.1 % (0.0-8.0); HEMATOCRIT 34.3 % (42-54); IMMATURE GRANULOCYTE ABSOLUTE 0.08 K/uL (0-1); LYMPHOCYTES % (AUTO) 6.4 % (21.0-51.0); MEAN CORPUSCULAR HGB CONC 30.6 g/dL (32.0-36.0); MEAN CORPUSCULAR VOLUME 75.1 fL (79-99); MONOCYTES # (AUTO) 1.4 K/uL (0.1-1.0); MONOCYTES % (AUTO) 9.1 % (3.0-13.0); NEUTROPHILS # (AUTO) 12.7 K/uL (1.8-7.7); NEUTROPHILS % (AUTO) 83.4 % (40.0-77.0); PLATELET COUNT (AUTO) 340 K/uL (130-400); RED BLOOD CELL COUNT(AUTO) 4.57 MIL/uL (4.50-6.20); RED CELL DISTRIBUTION WIDTH 18.1 % (11.0-15.5); WHITE BLOOD COUNT (AUTO) 15.2 K/uL (4.8-10.8)
[2023-08-31 16:27] LABS: ALBUMIN 2.8 g/dL (3.5-5.0); BILIRUBIN,TOTAL 0.5 mg/dL (0.2-1.0); TOTAL PROTEIN, SERUM 7.1 g/dL (6.0-8.3)
[2023-08-31 16:33] LABS: POTASSIUM 2.9 mmol/L (3.5-5.1)
[2023-08-31] MEDS: LIDOCAINE HCL 2% VISCOUS 15 ML UDCUP PO ONE (16:40)
[2023-08-31] MEDS: MAG/ALUM/SIMETH 30 ML UDCUP PO ONE (16:40)
[2023-08-31] MEDS: DICYCLOMINE HCL 10 MG/5 ML ML PO ONE (16:40)
[2023-08-31] MEDS: PANTOPRAZOLE 40 MG/VIAL IVP ONE (16:40)
[2023-08-31 17:06] LABS: INR 0.99 (0.85-1.15); PROTHROMBIN TIME 11.7 SEC (9.6-11.6)
[2023-08-31] MEDS: KCL 20 MEQ ERTAB PO ONE (17:30)
[2023-08-31] MEDS: ONDANSETRON 4MG INJ IVP ONE (17:35)
[2023-08-31] MEDS: MORPHINE 2 MG SYG IVP ONE (17:35)
[2023-08-31 17:50] VITALS: BP 139/82; PULSE 88; RESP 17; O2SAT 100
== END 2023-08-31 18:35 | disposition home or self-care (01) ==
LOC: EDH 15:20
DX: R10.9 Unspecified abdominal pain (principal); R11.0 Nausea; E87.6 Hypokalemia; I10 Essential (primary) hypertension; Z79.899 Other long term (current) drug therapy
CPT/HCPCS: 99285; 96374; 71045; 96375; 84484; 80053; 83690; 85025; 85610; 36415; 93005; J2270; J2405; C9113